=== PATIENT | female | born 1980 | race Caucasian/White ===

== ENCOUNTER 2020-09-12 17:12 | Inpatient (IN) ==
[2020-09-12 17:41] LABS: Basophils % 0.1 % (0.0-0.8); Hematocrit 43.7 VOL% (35.7-47.0); Hemoglobin 14.5 GM/DL (12.0-16.0); Immature Granulocytes % 0.3 %; Immature Granulocytes Absolute 0.04 #; Lymphocytes # 0.5 10*3/uL (1.4-4.0); Lymphocytes % 3.8 % (21.3-54.2); Mean Corpuscular HGB Conc 33.2 GM/DL (32-36); Mean Corpuscular Volume 85.9 FL (87-102); Mean Platelet Volume 10.7 FL (9.6-12.0); Monocytes % 6.5 % (1.7-12.7); Neutrophils % 89.3 % (38.7-73.9); Platelet Count 230 T/CUMM (130-400); Red Blood Count 5.09 MC/CUMM (3.8-5.5); Red Cell Distribution Width 15.7 % (9.3-17.3); White Blood Count 14.1 T/CUMM (4-12)
[2020-09-12] MEDS ORDERED: ALUM/MAG/SIMETH/LIDO VISC 1:1 30 ML BOTTLE PO STA (17:57)
[2020-09-12] MEDS ORDERED: ONDANSETRON 4 MG/2 ML VIAL IV STA (17:57)
[2020-09-12] MEDS ORDERED: ASPIRIN 325 MG TABLET PO STA (17:57)
[2020-09-12 18:06] LABS: Albumin 3.7 G/DL (3.4-5.0); Bilirubin,Total 2.1 MG/DL (0.2-1.0); Calcium 9.7 MG/DL (8.5-10.1); Osmolality,Calculated 270.1 MOS/KG (273-304); Total Protein 8.2 G/DL (6.4-8.3)
[2020-09-12 18:16] LABS: Band Neutrophils 5 % (0-10); Eosinophils 1 % (0-10); Lymphocytes 9 % (20-55); Platelet Estimate Normal; Segmented Neutrophils 82 % (50-85); Total Cells Counted 100
[2020-09-12 18:43] LABS: Bacteria,Urine Occasional /HPF (Few); Bilirubin,Urine Negative (Negative); Blood, Urine Small mg/dL (Negative); Glucose,Urine (UA) Negative (Negative); Ketones,Urine Negative (Negative); Mucus,Urine Occasional /LPF (Occasional); Nitrite,Urine Negative (Negative); Protein,Urine Negative; RBC,Urine 3 /HPF (0-4); Squamous Epithelial Cell,Urine Occasional /HPF (0-10); Urine Appearance CLEAR (Clear); Urine Color Yellow (Yellow); Urine Specific Gravity 1.005 (1.001-1.035); Urine Urobilinogen < 2.0 EU/DL (0.2-1.0); WBC,Urine 2 /HPF (0-6)
[2020-09-12 18:45] LABS: Barbiturates Screen,Urine Negative (Negative); Benzodiazepines Screen,Urine Negative (Negative); Cannabinoid Screen,Urine Negative (Negative); Opiate Screen,Urine Negative (Negative); Phencyclidine Screen,Urine Negative (Negative)
[2020-09-12 19:15] LABS: Hepatitis B Core IgM Quant 0.06 Index; Hepatitis B Surface Ag Quant < 0.10 Index; Hepatitis B Surface Ag Result Negative (Negative); Hepatitis C Virus Ab Quant < 0.02 Index; Hepatitis C Virus Ab Result Negative (Negative)
[2020-09-12] MEDS ORDERED: PIPERACILLIN/TAZOBACTAM 3,375 MG in SODIUM CHLORIDE 0.9% 100 ML IV STA (19:43)
[2020-09-12] MEDS ORDERED: diphenhydrAMINE CAP 25 MG CAPSULE PO PRN (20:14)
[2020-09-12] MEDS ORDERED: NICOTINE 21 MG/24 HR PATCH TRANSDERM PRN (20:14)
[2020-09-12] MEDS ORDERED: DEXTROSE 50% 25 GM/50 ML VIAL IV PRN (20:14)
[2020-09-12] MEDS ORDERED: GLUCAGON 1 MG VIAL IM PRN (20:14)
[2020-09-12] MEDS ORDERED: MORPHINE 4 MG/1 ML VIAL IV PRN (20:14)
[2020-09-12] MEDS ORDERED: ONDANSETRON 4 MG/2 ML VIAL IV PRN (20:14)
[2020-09-12] MEDS ORDERED: hydrALAZINE 20 MG/1 ML VIAL IV PRN (20:14)
[2020-09-12] MEDS ORDERED: LEVOFLOXACIN INJ 500 MG in PREMIX 1 EACH IV SCH (23:30)
[2020-09-13] MEDS: SODIUM CHLORIDE 0.9% 1,000 ML IV SCH ×3 (01:32→13:27)
[2020-09-13] MEDS ORDERED: cefTRIAXone 2,000 MG in SYRINGE 1 EACH IV SCH (04:30)
[2020-09-13] MEDS: ACETAMINOPHEN 500 MG TABLET PO PRN (04:45)
[2020-09-13 06:38] LABS: Albumin 3.2 G/DL (3.4-5.0); Bilirubin,Total 3.9 MG/DL (0.2-1.0); Calcium 9.1 MG/DL (8.5-10.1); Osmolality,Calculated 270.8 MOS/KG (273-304); Total Protein 7.1 G/DL (6.4-8.3)
[2020-09-13] MEDS ORDERED: INFLUENZA VIRUS VACCINE 0.5 ML SYRINGE IM ONE (09:00)
[2020-09-13] MEDS: PIPERACILLIN/TAZOBACTAM 3,375 MG in SODIUM CHLORIDE 0.9% 100 ML IV SCH ×2 (13:00→19:35)
[2020-09-13] MEDS: METOPROLOL SUCCINATE XL 50 MG TABLET PO SCH (20:16)
[2020-09-14] MEDS: PIPERACILLIN/TAZOBACTAM 3,375 MG in SODIUM CHLORIDE 0.9% 100 ML IV SCH ×3 (03:14→20:39)
[2020-09-14 04:41] LABS: Basophils % 0.5 % (0.0-0.8); Eosinophils # 0.2 10*3/uL (0.0-0.87); Eosinophils % 2.6 % (0.00-10.9); Hematocrit 40.3 VOL% (35.7-47.0); Hemoglobin 12.5 GM/DL (12.0-16.0); Immature Granulocytes % 0.8 %; Immature Granulocytes Absolute 0.05 #; Lymphocytes % 15.4 % (21.3-54.2); Mean Platelet Volume 11.4 FL (9.6-12.0); Monocytes % 14.8 % (1.7-12.7); Neutrophils % 65.9 % (38.7-73.9); Platelet Count 175 T/CUMM (130-400); Red Blood Count 4.58 MC/CUMM (3.8-5.5); Red Cell Distribution Width 16.4 % (9.3-17.3); White Blood Count 6.6 T/CUMM (4-12)
[2020-09-14 05:05] LABS: Albumin 2.8 G/DL (3.4-5.0); Bilirubin,Total 2.4 MG/DL (0.2-1.0); Calcium 8.6 MG/DL (8.5-10.1); Osmolality,Calculated 277.3 MOS/KG (273-304); Total Protein 6.9 G/DL (6.4-8.3)
[2020-09-14 05:24] LABS: INR 1.1; PT Patient Result 11.6 SECS (9.8-11.9)
[2020-09-14] MEDS ORDERED: INDOMETHACIN SUPP 50 MG SUPP RECTAL ONE ×2 (06:54→08:00)
[2020-09-14] MEDS ORDERED: LACTATED RINGERS 1,000 ML IV SCH (08:00)
[2020-09-14] MEDS: METOPROLOL SUCCINATE XL 50 MG TABLET PO SCH ×2 (08:00→20:35)
[2020-09-14] MEDS: SODIUM CHLORIDE 0.9% 1,000 ML IV SCH ×2 (08:24→17:57)
[2020-09-14] MEDS ORDERED: propofoL 200 MG/20 ML VIAL IV ONE (08:36)
[2020-09-14] MEDS ORDERED: ROCURONIUM 50 MG/5 ML VIAL IV ONE (08:36)
[2020-09-14] MEDS ORDERED: LIDOCAINE 2% 5 ML VIAL ONE (08:36)
[2020-09-14] MEDS ORDERED: SUCCINYLCHOLINE 200 MG/10 ML VIAL ONE (08:36)
[2020-09-14] MEDS ORDERED: fentaNYL 100 MCG/2 ML VIAL ONE (08:39)
[2020-09-14] MEDS ORDERED: ONDANSETRON 4 MG/2 ML VIAL ONE (09:13)
[2020-09-14] MEDS ORDERED: SEVOFLURANE 1 UNIT/15 MINUTE INH ONE (11:49)
[2020-09-15] MEDS: SODIUM CHLORIDE 0.9% 1,000 ML IV SCH ×2 (05:24→08:38)
[2020-09-15] MEDS: PIPERACILLIN/TAZOBACTAM 3,375 MG in SODIUM CHLORIDE 0.9% 100 ML IV SCH (05:24)
[2020-09-15 06:10] LABS: Albumin 2.7 G/DL (3.4-5.0); Bilirubin,Total 1.9 MG/DL (0.2-1.0); Calcium 8.4 MG/DL (8.5-10.1); Osmolality,Calculated 281.1 MOS/KG (273-304); Total Protein 6.7 G/DL (6.4-8.3)
[2020-09-15] MEDS: METOPROLOL SUCCINATE XL 50 MG TABLET PO SCH (08:37)
[2020-09-15 11:38] VITALS: BP 121/83
[2020-09-15] MEDS ORDERED: ERTAPENEM 1,000 MG in SODIUM CHLORIDE 0.9% 100 ML IV SCH (13:00)
[2020-09-15] MEDS: ACETAMINOPHEN 500 MG TABLET PO PRN (14:56)
== END 2020-09-15 16:19 | disposition home or self-care (01) | DRG 445 ==
LOC: N.EDINP 17:12 → N.ED 17:12 → N.5E 22:26
PROVIDERS: ADMIT Internal Medicine; ATTEND Internal Medicine